=== PATIENT | female | born 1965 | race Asian ===

== ENCOUNTER → 2016-12-27 | Outpatient (CLI) | payer OTHER ==
[~2016-12-27] MED LIST: GADOBUTROL 10 ML VIAL IVP ONE
== END ==
LOC: FIMAGING 09:55
PROVIDERS: ATTEND Physician Assistant
DX: R10.10 Upper abdominal pain, unspecified (principal); K76.9 Liver disease, unspecified
CPT/HCPCS: A9585

== ENCOUNTER → 2017-10-19 | Outpatient (CLI) | payer OTHER | LOC: BRMIMAGING 09:51 | PROVIDERS: ATTEND Physician Assistant | DX: R05 Cough (principal); R06.02 Shortness of breath | CPT/HCPCS: 71046-PO ==